=== PATIENT | male | born 1990 | race Caucasian/White ===

== ENCOUNTER 2017-07-30 13:27 | Emergency (ER) | payer MEDICAID ==
[2017-07-30] MEDS ORDERED: NS(*) 0.9% 1000 ML BAG 1,000 ML IV ONE (13:33)
[2017-07-30] MEDS ORDERED: fentaNYL CITR 100 MCG/2 ML AMP IVP ONE ×2 (13:35→14:30)
[2017-07-30] MEDS ORDERED: DIPHTH/TETANUS/ACEL. PERTUSSIS IM ONE (13:35)
[2017-07-30] MEDS ORDERED: ONDANSETRON 4 MG/2 ML VIAL IVP ONE (13:35)
[2017-07-30] MEDS ORDERED: methylPREDNIS SUCC 125 MG/2ML IVP ONE (13:40)
[2017-07-30] MEDS ORDERED: diphenhydrAMINE 50 MG/ML VIAL IVP ONE (13:40)
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
[2017-07-30 13:48] LABS: PLATELET COUNT, AUTOMATED 325 K/uL (150-450)
[2017-07-30] MEDS ORDERED: fentaNYL CITR 100 MCG/2 ML AMP ONE (13:53)
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
--- NOTE | 2017-07-30 13:57 | RADIOLOGY IMAGING REPORT ---
FACILITY: [facility] [place] PATIENT NAME: Aakash Mendoza : 1990 MR: [id number] V: [id number] EXAM DATE: ORDERING PHYSICIAN: JANY RAMOS TECHNOLOGIST: Location: [facility] Patient: Aakash Mendoza : 1990 Visit/Account:[id number] Date of Sevice: 07/30/2017 Study: PELVIS Indication: Trauma Comparison study: None Findings: AP supine view of the pelvis demonstrates the presence of a right ureteral stent. There is no evidence of abnormal calcification overlying the stent. The iliac crests, pubic rami, femoral heads, and femoral necks are unremarkable bilaterally. There i s no evidence of abnormality of the sacroiliac joints are hip joints. IMPRESSION: Unremarkable exam Report Dictated By: Justin Cooley at 07/30/2017 1:51 PM Report E-Signed By: Justin Cooley at 07/30/2017 1:52 PM WSN:[id number]
[2017-07-30 13:58] LABS: INR 1.04
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
--- NOTE | 2017-07-30 15:22 | RADIOLOGY IMAGING REPORT ---
FACILITY: [facility] - [place] PATIENT NAME: Aakash Mendoza : 1990 MR: [id number] V: [id number] EXAM DATE: ORDERING PHYSICIAN: JANY RAMOS TECHNOLOGIST: Location: [facility] - [place] Patient: Aakash Mendoza : 1990 Visit/Account:[id number] Date of Sevice: 07/30/2017 EXAMINATION: CT Cervical spine without intravenous contrast CT Thoracic spine without intravenous contrast CT Lumbar spine without intravenous contrast HISTORY: Neck pain. Back pain. Trauma. COMPARISON: None. TECHNIQUE: Axial CT of the cervical, thoracic, and lumbar spine with sagittal and coronal reformats. One of the following dose optimization techniques was utilized in the performance of this exam: Autom ated exposure control; adjustment of the mA and/or kV according to the patient's size; or use of an i terative reconstruction technique. Specific details can be referenced in the facility's radiology C T exam operational policy. FINDINGS: CERVICAL SPINE: Alignment: Normal. Cranio-cervical junction: Negative. Vertebral bodies: Negative. Posterior elements: Negative. Hardware: None. Disc Spaces: Negative. Soft tissues: Negative. Visualized upper chest: Negative. THORACIC SPINE: Alignment: Normal. Vertebral bodies: Negative. Posterior elements: Mild multilevel facet hypertrophy in the midthoracic spine. Hardware: None. Disc Spaces: Mild multilevel degenerative disc disease. Soft tissues: No soft tissue swelling. Visualized lungs / abdomen: Negative. LUMBAR SPINE: Alignment: 3 mm of anterior listhesis of L5 over S1 secondary to bilateral L5 pars defects. Vertebral bodies: Negative. Posterior elements: Bilateral L5 pars defects. Otherwise negative. Hardware: None. Disc Spaces: Mild disc height loss and disc bulge at L5-S1. Otherwise negative. Soft tissues: Negative. Visualized retroperitoneal / abdominal structures: Ureteral stent in the right kidney. IMPRESSION: 1. No acute fracture of the cervical, thoracic, or lumbar spine. 2. Mild multilevel degenerative disc disease and facet hypertrophy in the thoracic spine. 3. Bilateral L5 pars defects with 3 mm of anterior listhesis of L5 over S1. Mild disc height loss and disc bulge at L5-S1. Report Dictated By: Alan Hill MD at 07/30/2017 3:08 PM Report E-Signed By: Alan Hill MD at 07/30/2017 3:17 PM WSN:[id number]
--- NOTE | 2017-07-30 15:23 | RADIOLOGY IMAGING REPORT ---
FACILITY: [facility] PATIENT NAME: Aakash Mendoza : 1990 MR: [id number] V: [id number] EXAM DATE: ORDERING PHYSICIAN: JANY RAMOS TECHNOLOGIST: Location: Patient: Aakash Mendoza : 1990 Visit/Account:[id number] Date of Sevice: 07/30/2017 EXAMINATION: CT Cervical spine without intravenous contrast CT Thoracic spine without intravenous contrast CT Lumbar spine without intravenous contrast HISTORY: Neck pain. Back pain. Trauma. COMPARISON: None. TECHNIQUE: Axial CT of the cervical, thoracic, and lumbar spine with sagittal and coronal reformats. One of the following dose optimization techniques was utilized in the performance of this exam: Autom ated exposure control; adjustment of the mA and/or kV according to the patient's size; or use of an i terative reconstruction technique. Specific details can be referenced in the facility's radiology C T exam operational policy. FINDINGS: CERVICAL SPINE: Alignment: Normal. Cranio-cervical junction: Negative. Vertebral bodies: Negative. Posterior elements: Negative. Hardware: None. Disc Spaces: Negative. Soft tissues: Negative. Visualized upper chest: Negative. THORACIC SPINE: Alignment: Normal. Vertebral bodies: Negative. Posterior elements: Mild multilevel facet hypertrophy in the midthoracic spine. Hardware: None. Disc Spaces: Mild multilevel degenerative disc disease. Soft tissues: No soft tissue swelling. Visualized lungs / abdomen: Negative. LUMBAR SPINE: Alignment: 3 mm of anterior listhesis of L5 over S1 secondary to bilateral L5 pars defects. Vertebral bodies: Negative. Posterior elements: Bilateral L5 pars defects. Otherwise negative. Hardware: None. Disc Spaces: Mild disc height loss and disc bulge at L5-S1. Otherwise negative. Soft tissues: Negative. Visualized retroperitoneal / abdominal structures: Ureteral stent in the right kidney. IMPRESSION: 1. No acute fracture of the cervical, thoracic, or lumbar spine. 2. Mild multilevel degenerative disc disease and facet hypertrophy in the thoracic spine. 3. Bilateral L5 pars defects with 3 mm of anterior listhesis of L5 over S1. Mild disc height loss and disc bulge at L5-S1. Report Dictated By: Alan Hill MD at 07/30/2017 3:08 PM Report E-Signed By: Alan Hill MD at 07/30/2017 3:17 PM WSN:[id number]
[2017-07-30] MEDS ORDERED: HYDROmorphone(ER ONLY) 1 MG/ML IVP ONE (15:25)
--- NOTE | 2017-07-30 15:26 | RADIOLOGY IMAGING REPORT ---
FACILITY: [facility] PATIENT NAME: Aakash Mendoza : 1990 MR: [id number] V: [id number] EXAM DATE: ORDERING PHYSICIAN: JANY RAMOS TECHNOLOGIST: Location: [facility] [place] Patient: Aakash Mendoza : 1990 Visit/Account:[id number] Date of Sevice: 07/30/2017 EXAMINATION: CT Face without intravenous contrast HISTORY: Trauma. COMPARISON: None. TECHNIQUE: Axial images were obtained from the superior aspect of the orbits through the inferior as pect of mandible. Coronal and sagittal reformatted images were obtained from the axial source data. N o IV contrast was administered. One of the following dose optimization techniques was utilized in the performance of this exam: Autom ated exposure control; adjustment of the mA and/or kV according to the patient's size; or use of an i terative reconstruction technique. Specific details can be referenced in the facility's radiology C T exam operational policy. FINDINGS: Soft Tissues: Negative. Mandible / TMJ: Negative. Maxillae / pterygoid plates: Negative. Zygoma / zygomatic arches: Negative. Orbits: Negative. Nasal bones / nasal septum: Negative. Frontal bones: Negative. Sinuses: Small retention cyst or polyp in the floor of the right maxillary sinus. Otherwise negative. Visualized brain: Negative. IMPRESSION: No acute facial fracture. Report Dictated By: Alan Hill MD at 07/30/2017 3:18 PM Report E-Signed By: Alan Hill MD at 07/30/2017 3:21 PM WSN:[id number]
--- NOTE | 2017-07-30 15:33 | RADIOLOGY IMAGING REPORT ---
FACILITY: [facility] - [place] PATIENT NAME: Aakash Mendoza : 1990 MR: [id number] V: [id number] EXAM DATE: ORDERING PHYSICIAN: JANY RAMOS TECHNOLOGIST: Location: [facility] - [place] Patient: Aakash Mendoza : 1990 Visit/Account:[id number] Date of Sevice: 07/30/2017 SHOULDER MIN 2 VIEWS LEFT Indication: Trauma. Comparison: Unavailable Findings: 2 views of the left shoulder. No evidence of acute fracture, dislocation, or radiopaque foreign body. Normal mineralization, joint spaces, and alignment. IMPRESSION: No acute osseous abnormality of the left shoulder. Report Dictated By: Aaln Hill MD at 07/30/2017 3:27 PM Report E-Signed By: Alan Hill MD at 07/30/2017 3:29 PM WSN:[id number]
[2017-07-30 15:50] VITALS: BP 110/81
== END 2017-07-30 15:58 | disposition home or self-care (01) ==
LOC: ER 13:28
DX: S20.212A Contusion of left front wall of thorax, initial encounter (principal); S00.03XA Contusion of scalp, initial encounter; V86.59XA Driver of other special all-terrain or other off-road motor vehicle injured in nontraffic accident, initial encounter
CPT/HCPCS: 70450; 70486; 71045; 71250; 72125; 72128; 72131; 72170; 73030; 74176; 80320; 83690; 85025; 85610; 85730; 86850; 86900; 86901; 93005; 96361; 96374; 96375; 96376; 99284; J1170; J2405; J3010; J7030; 82040; 82247; 82310; 82374; 82435; 82565; 82947; 84075; 84132; 84155; 84295; 84450; 84460; 84520

== ENCOUNTER 2017-08-09 21:35 | Emergency (ER) | payer MEDICAID ==
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
[2017-08-09] MEDS ORDERED: NS(*) 0.9% 1000 ML BAG 1,000 ML IV ONE (21:46)
[2017-08-09] MEDS ORDERED: ONDANSETRON 4 MG/2 ML VIAL IVP ONE (21:50)
[2017-08-09] MEDS ORDERED: fentaNYL CITR 100 MCG/2 ML AMP IVP ONE ×2 (21:50→22:30)
[2017-08-09] MEDS ORDERED: DIPHTH/TETANUS/ACEL. PERTUSSIS IM ONE (21:50)
[2017-08-09 21:59] LABS: PLATELET COUNT, AUTOMATED 244 K/uL (150-450)
[2017-08-09] MEDS ORDERED: LORazepam 2 MG/ML VIAL IVP ONE (22:00)
[2017-08-09] MEDS ORDERED: LORazepam 2 MG/ML VIAL ONE (22:01)
--- NOTE | 2017-08-09 22:02 | EKG ---
FACILITY: [facility] - [place] PATIENT NAME: AJIT ARTEAGA : [id number] MR: [id number] V: [id number] EXAM DATE: ORDERING PHYSICIAN: CORRINE OWEN TECHNOLOGIST: ABILIO Dao Reason : ER TRAUMA Blood Pressure : / mmHG Vent. Rate : 092 BPM Atrial Rate : 092 BPM P-R Int : 138 ms QRS Dur : 090 ms QT Int : 356 ms P-R-T Axes : 048 060 055 degrees QTc Int : 440 ms Normal sinus rhythm Normal ECG When compared with ECG of 30-JUL-2017 13:35, No significant change was found Confirmed by JESSICA MORAN ([id number]) on 08/10/2017 4:13:44 AM Referred By: Confirmed By:JESSICA MORAN
[2017-08-09 22:11] LABS: INR 1.06
--- NOTE | 2017-08-09 23:05 | RADIOLOGY IMAGING REPORT ---
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 No acute deformity or sign ificant change is identified in the lumbar spine. Report Dictated By: Mango Barbosa MD at 08/09/2017 11:14 PM Report E-Signed By: Mango Barbosa MD at 08/09/2017 11:[address] of the abdomen and pelvis without contrast: Indication: Injury. Technique: Helical CT was performed through the abdomen and pelvis without contrast. Multiplanar rec onstructions are reviewed. There is streak artifact related to the low position of the patient's arms . One of the following dose optimization techniques was utilized in the performance of this exam: Autom ated exposure control; adjustment of the mA and/or kV according to the patient's size; or use of an i terative reconstruction technique. Specific details can be referenced in the facility's radiology C T exam operational policy. Comparison: 07/30/2017 Lower lung smith: No focal parenchymal or pleural abnormality is identified. Liver: Normal in size, shape, and density. Gallbladder/biliary tree: The gallbladder is normal in size and homogeneous in density. The bile duct s are normal in caliber. Pancreas: Normal in size, shape, and density. Spleen: Normal in size, shape, and density. Adrenal glands: Within normal limits. Kidneys/urinary bladder: There are no signs of acute renal injury. The right ureteral stent is no jeanette chelle present. There is no dilatation of the right ureter or intrarenal collecting structures. Tiny non obstructing calculi are present at the lower pole of the right kidney. Tiny hyperdense cysts are pres ent in both kidneys, without significant change. The bladder appears homogeneous and unremarkable. Intestinal structures: Unremarkable, as visualized. Pelvis: Unremarkable. Aorta and vascular structures: Within normal limits. Ascites or fluid collections: None seen. Skeletal structures: Intact and unremarkable. Impression: No acute deformity. Report Dictated By: Mango Barbosa MD at 08/09/2017 10:53 PM Report E-Signed By: Mango Barbosa MD at 08/09/2017 11:01 PM WSN:[id number]
--- NOTE | 2017-08-09 23:10 | RADIOLOGY IMAGING REPORT ---
FACILITY: [facility] PATIENT NAME: Aakash Mendoza : 1990 MR: [id number] V: [id number] EXAM DATE: ORDERING PHYSICIAN: CORRINE OWEN TECHNOLOGIST: [place] [facility] [place]akash Mendoza : 1990 Visit/Account:[id number] Date of Sevice: 08/09/2017 CT of the chest: Indication: Injury. Technique: Helical CT was performed through the chest without contrast. One of the following dose optimization techniques was utilized in the performance of this exam: Autom ated exposure control; adjustment of the mA and/or kV according to the patient's size; or use of an i terative reconstruction technique. Specific details can be referenced in the facility's radiology C T exam operational policy. Comparison: 07/30/2017 Lung smith: Well-expanded and clear. No focal or diffuse parenchymal opacities are identified. Pleural spaces: There is no evidence of effusion, focal thickening, or pneumothorax. Mediastinum: A few tiny lymph nodes are present. There is no evidence of hematoma or other soft tissu e abnormality. Heart and vascular structures: Unremarkable and unchanged. Skeletal structures: Intact and unremarkable. Upper abdomen: Unremarkable. IMPRESSION: No acute deformity or significant change. Report Dictated By: Mango Barbosa MD at 08/09/2017 11:01 PM Report E-Signed By: Mango Barbosa MD at 08/09/2017 11:07 PM WSN:[id number]
--- NOTE | 2017-08-09 23:14 | RADIOLOGY IMAGING REPORT ---
FACILITY: [facility] PATIENT NAME: Aakash Mendoza : 1990 MR: [id number] V: [id number] EXAM DATE: ORDERING PHYSICIAN: CORRINE OWEN TECHNOLOGIST: [place] [facility] [place] Patient: Aakash Mendoza : 1990 Visit/Account:[id number] Date of Sevice: 08/09/[address]: Indication: Injury. Technique: Contiguous axial sections were obtained from the base to the vertex without contrast enhan cement. One of the following dose optimization techniques was utilized in the performance of this exam: Autom ated exposure control; adjustment of the mA and/or kV according to the patient's size; or use of an i terative reconstruction technique. Specific details can be referenced in the facility's radiology CT exam operational policy. Comparison: 07/30/2017 Findings: There is no evidence of intra-axial or extra-axial hemorrhage. No focal areas of decreased or increased attenuation are identified. There is no evidence of mass, edema, or shift of the midline structures. The size, shape, and configuration of the ventricular system are normal. The skeletal st ructures are intact and unremarkable. There is no evidence of fracture or other acute deformity. Ther e is a tiny retention cyst in the right maxillary sinus. The visualized paranasal sinuses and mastoid air cells are otherwise clear. Impression: No acute deformity or significant change. Report Dictated By: Mango Barbosa MD at 08/09/2017 11:07 PM Report E-Signed By: Mango Barbosa MD at 08/09/2017 11:11 PM WSN:[id number]
--- NOTE | 2017-08-09 23:26 | RADIOLOGY IMAGING REPORT ---
FACILITY: [facility] PATIENT NAME: Aakash Mendoza : 1990 MR: [id number] V: [id number] EXAM DATE: ORDERING PHYSICIAN: CORRINE OWEN TECHNOLOGIST: Location: [facility] [place] Patient: Aakash Mendoza : 1990 Visit/Account:[id number] Date of Sevice: 08/09/2017 ADDENDUM #1 Addendum: One of the following dose optimization techniques was utilized in the performance of this e xam: Automated exposure control; adjustment of the mA and/or kV according to the patient's size; or u se of an iterative reconstruction technique. Specific details can be referenced in the facility's r adiology CT exam operational policy. Report Dictated By: Mango Barbosa MD at 08/13/2017 2:31 AM Report E-Signed By: Mango Barbosa MD at 08/13/2017 2:[address] of the cervical spine without contrast: Indication: Injury. Technique: Helical CT was performed from the base of the skull through the upper thoracic spine witho ut contrast. Axial, coronal, and sagittal reconstructions are reviewed. Comparison: 07/30/2017 Findings: There is no evidence of fracture, compression, subluxation, or other acute deformity. There is uniform mineralization. The skeletal structures are otherwise unremarkable. No paraspinal soft ti ssue abnormalities are identified. IMPRESSION: No evidence of fracture or acute deformity. No significant change. Report Dictated By: Mango Barbosa MD at 08/09/2017 11:20 PM Report E-Signed By: Mango Barbosa MD at 08/09/2017 11:22 PM WSN:[id number]
--- NOTE | 2017-08-09 23:27 | RADIOLOGY IMAGING REPORT ---
FACILITY: [facility] [place] PATIENT NAME: Aakash Mendoza : 1990 MR: [id number] V: [id number] EXAM DATE: ORDERING PHYSICIAN: CORRINE OWEN TECHNOLOGIST: Location: [facility] [place] Patient: Aakash Mendoza : 1990 Visit/Account:[id number] Date of Sevice: 08/09/2017 PORTABLE CHEST: Indication: Injury. Technique: A single frontal film was obtained. Comparison: 07/30/2017 Skeletal and soft tissue structures: Intact and unremarkable. Heart and mediastinum: Within normal limits. Lung smith: Well-expanded and clear. Pleural spaces: Unremarkable. Impression: No acute deformity or significant change. Report Dictated By: Mango Barbosa MD at 08/09/2017 11:23 PM Report E-Signed By: Mango Barbosa MD at 08/09/2017 11:24 PM WSN:[id number]
[2017-08-09] MEDS ORDERED: RIVA10TA (23:33)
[2017-08-09] MEDS ORDERED: TAMS0.4C25 PO (23:33)
[2017-08-09] MEDS ORDERED: IBUP600T22 PO (23:40)
== END 2017-08-09 23:50 | disposition home or self-care (01) ==
LOC: ER 21:51
DX: S20.311A Abrasion of right front wall of thorax, initial encounter (principal); M79.604 Pain in right leg; F41.9 Anxiety disorder, unspecified; M43.06 Spondylolysis, lumbar region; V48.7XXA Person on outside of car injured in noncollision transport accident in traffic accident, initial encounter
CPT/HCPCS: 70450; 71045; 71250; 72125; 74176; 80305; 81001; 82150; 83605; 83690; 85025; 85610; 85730; 93005; 96361; 96374; 96375; 96376; 99284; G0480; J2060; J2405; J3010; J7030; L0172; 80320; 82040; 82247; 82310; 82374; 82435; 82565; 82947; 84075; 84132; 84155; 84295; 84450; 84460; 84520

== ENCOUNTER 2017-10-04 19:33 | Emergency (ER) | payer MEDICAID ==
[~2017-10-04 19:33] MED LIST: IBUP600T22 PO; RIVA10TA; TAMS0.4C25 PO
--- NOTE | 2017-10-04 19:48 | ER Report ---
History and Physical Time Seen By MD: 19:47 Hx. of Stated Complaint: Pt has hx of kidney stones and is in severe pain with his right side front and back. HPI/ROS CHIEF COMPLAINT: Right lower quadrant and groin pain HISTORY OF PRESENT ILLNESS: This is a 27-year-old male who presents to the emergency department for right flank, right lower quadrant and groin pain. Patient states that he was treated for a kidney stone recently had a dental placed then the stent was removed about a month ago. Patient states that he will have intermittent twinges on the right side. Then yesterday evening he began to have some achiness in the right side, then early in the morning he began to have increased right-sided pain patient states he was trying to deal with this at home and the pain became so severe that he came in for further evaluation. Patient states that he also has a in the right inguinal area into the right testicle. Patient also states that he's had dark blackish stools for the last 4-5 days. He's had nausea, no vomiting. Patient also states that he's had blood in his urine. No chest pain or shortness of breath. No rashes. No headaches. REVIEW OF SYSTEMS: Constitutional: No fever, no chills. Eyes: No discharge. ENT: No sore throat. Cardiovascular: No chest pain, no palpitations. Respiratory: No cough, no shortness of breath. Gastrointestinal: As above. Genitourinary: As above. Musculoskeletal: No back pain. Skin: No rashes. Neurological: No headache. Allergies: Coded Allergies: diphenhydramine (Verified Allergy, Intermediate, 10/04/17) Uncoded Allergies: CONTRAST (Allergy, Severe, 07/30/17) BREATHING PROBLEMS Home Meds Active Scripts Doxycycline Hyclate (DOXYCYCLINE HYCLATE) 100 Mg Tablet, 100 MG PO BID for 10 Days, #18 TAB 0 Refills Prov:DARIAN DYER GEOSPATIAL EXTRACTOR ANALYSIS-BC 10/04/17 Discontinued Reported Medications Tamsulosin Hcl (FLOMAX) 0.4 Mg Cap.er.24h, 0.4 MG PO, CAP 08/09/17 Rivaroxaban 10 MG (Xarelto 10 MG) 10 Mg Tablet 08/09/17 Discontinued Scripts Ibuprofen (IBUPROFEN) 600 Mg Tablet, 1 TAB PO Q6H, #30 TAB Prov:LEXIECORRINE 08/09/17 Past Medical/Surgical History She has a past medical and surgical history of PE, gallstones with a stent, urinary tract infections, chronic back pain, kidney stones, urinary stent. Reviewed Nurses Notes: Yes Hx Substance Use Disorder: No Hx Alcohol Use: No Constitutional Vital Sign - Last 24 Hours 10/04/17 10/04/17 10/04/17 19:40 19:41 20:12 Temp 99.6 Pulse 81 Resp 14 B/P (MAP) 144/99 (114) 144/99 141/93 (109) Pulse Ox 95 O2 Delivery Room Air Physical Exam General Appearance: The patient is alert, has no immediate need for airway protection and no signs of toxicity, appears anxious. Eyes: Pupils equal and round no pallor or injection. ENT, Mouth: Mucous membranes are moist. Respiratory: There are no retractions, lungs are clear to auscultation. Cardiovascular: Regular rate and rhythm, no murmurs, clicks or rubs. Gastrointestinal: Abdomen is soft, tenderness to the right upper and lower quadrants. no masses, bowel sounds normal. Genitourinary: Positive cremasteric reflex bilaterally. Normal feeling testes bilaterally. Nothing noted in the left inguinal canal. I did feel something in right inguinal canal, but nothing extending into the scrotum. Neurological: Alert and oriented 4. Moving all extremities. Following all commands. No focal neuro deficits. Skin: Warm and dry, no rashes. Musculoskeletal: Neck is supple non tender. Extremities are nontender, nonswollen and have full range of motion. DIFFERENTIAL DIAGNOSIS: After history and physical exam differential diagnosis was considered for abdominal pain including but not limited to appendicitis, cholecystitis, testicular torsion, nephrolithiasis, gastritis and urinary tract infection. Medical Decision Making Data Points Result Diagram: 10/04/17 1950 10/04/171949 Laboratory Hematology Test 10/04/17 19:38 10/04/17 19:50 Urine Color Yellow Urine Clarity Cloudy Urine pH 8.0 pH (4.8-9.5) Urine Specific Conway 1.014 Urine Protein Negative mg/dL (NEGATIVE) Urine Glucose (UA) Negative mg/dL (NEGATIVE) Urine Ketones Negative mg/dL (NEGATIVE) Urine Blood Moderate (NEGATIVE) Urine Nitrite Positive (NEGATIVE) Urine Bilirubin Negative (NEGATIVE) Urine Urobilinogen Negative mg/dL (0.2-1.9) Urine Leukocyte Esterase Large (NEGATIVE) Urine RBC 29 /HPF (0-2/HPF) Urine WBC 22 /HPF (0-5/HPF) Urine Squamous Epithelial Cells Many /LPF (</=FEW) Urine Amorphous Crystals Few /HPF Urine Bacteria Moderate /HPF (NONE-FEW) Urine Mucus None /HPF (NONE-FEW) Red Blood Count 4.83 M/uL (4.00-5.60) Mean Corpuscular Volume 90.3 fL (80.0-96.0) Mean Corpuscular Hemoglobin 31.7 pg (26.0-33.0) Mean Corpuscular Hemoglobin Concent 35.0 g/dL (32.0-36.0) Red Cell Distribution Width 12.9 % (11.5-14.5) Mean Platelet Volume 7.7 fL (7.2-11.1) Neutrophils (%) (Auto) 50.9 % (39.4-72.5) Lymphocytes (%) (Auto) 39.7 % (17.6-49.6) Monocytes (%) (Auto) 8.3 % (4.1-12.4) Eosinophils (%) (Auto) 0.7 % (0.4-6.7) Basophils (%) (Auto) 0.4 % (0.3-1.4) Nucleated RBC Relative Count (auto) 0.1 /100WBC Neutrophils # (Auto) 4.0 K/uL (2.0-7.4) Lymphocytes # (Auto) 3.1 K/uL (1.3-3.6) Monocytes # (Auto) 0.7 K/uL (0.3-1.0) Eosinophils # (Auto) 0.1 K/uL (0.0-0.5) Basophils # (Auto) 0.0 K/uL (0.0-0.1) Nucleated RBC Absolute Count (auto) 0.00 K/uL Sodium Level 143 mmol/L (137-145) Potassium Level 4.0 mmol/L (3.5-5.0) Chloride Level 103 mmol/L (98-107) Carbon Dioxide Level 25 mmol/L (22-30) Blood Urea Nitrogen 13 mg/dl (9-21) Creatinine 1.30 mg/dl (0.66-1.25) Glomerular Filtration Rate Calc > 60.0 Random Glucose 103 mg/dl (75-110) Calcium Level 9.7 mg/dl (8.4-10.2) Total Bilirubin 0.5 mg/dl (0.2-1.3) Aspartate Amino Transf (AST/SGOT) 37 U/L (0-35) Alanine Aminotransferase (ALT/SGPT) 45 U/L (0-56) Alkaline Phosphatase 92 U/L (0-126) Total Protein 7.6 gm/dl (6.3-8.2) Albumin 4.2 g/dl (3.5-5.0) Chemistry Test 10/04/17 19:38 10/04/17 19:50 Urine Color Yellow Urine Clarity Cloudy Urine pH 8.0 pH (4.8-9.5) Urine Specific [place] 1.014 Urine Protein Negative mg/dL (NEGATIVE) Urine Glucose (UA) Negative mg/dL (NEGATIVE) Urine Ketones Negative mg/dL (NEGATIVE) Urine Blood Moderate (NEGATIVE) Urine Nitrite Positive (NEGATIVE) Urine Bilirubin Negative (NEGATIVE) Urine Urobilinogen Negative mg/dL (0.2-1.9) Urine Leukocyte Esterase Large (NEGATIVE) Urine RBC 29 /HPF (0-2/HPF) Urine WBC 22 /HPF (0-5/HPF) Urine Squamous Epithelial Cells Many /LPF (</=FEW) Urine Amorphous Crystals Few /HPF Urine Bacteria Moderate /HPF (NONE-FEW) Urine Mucus None /HPF (NONE-FEW) White Blood Count 7.9 k/uL (4.5-11.0) Red Blood Count 4.83 M/uL (4.00-5.60) Hemoglobin 15.3 g/dL (14.0-18.0) Hematocrit 43.6 % (42.0-52.0) Mean Corpuscular Volume 90.3 fL (80.0-96.0) Mean Corpuscular Hemoglobin 31.7 pg (26.0-33.0) Mean Corpuscular Hemoglobin Concent 35.0 g/dL (32.0-36.0) Red Cell Distribution Width 12.9 % (11.5-14.5) Platelet Count 279 K/uL (150-450) Mean Platelet Volume 7.7 fL (7.2-11.1) Neutrophils (%) (Auto) 50.9 % (39.4-72.5) Lymphocytes (%) (Auto) 39.7 % (17.6-49.6) Monocytes (%) (Auto) 8.3 % (4.1-12.4) Eosinophils (%) (Auto) 0.7 % (0.4-6.7) Basophils (%) (Auto) 0.4 % (0.3-1.4) Nucleated RBC Relative Count (auto) 0.1 /100WBC Neutrophils # (Auto) 4.0 K/uL (2.0-7.4) Lymphocytes # (Auto) 3.1 K/uL (1.3-3.6) Monocytes # (Auto) 0.7 K/uL (0.3-1.0) Eosinophils # (Auto) 0.1 K/uL (0.0-0.5) Basophils # (Auto) 0.0 K/uL (0.0-0.1) Nucleated RBC Absolute Count (auto) 0.00 K/uL Glomerular Filtration Rate Calc > 60.0 Calcium Level 9.7 mg/dl (8.4-10.2) Total Bilirubin 0.5 mg/dl (0.2-1.3) Aspartate Amino Transf (AST/SGOT) 37 U/L (0-35) Alanine Aminotransferase (ALT/SGPT) 45 U/L (0-56) Alkaline Phosphatase 92 U/L (0-126) Total Protein 7.6 gm/dl (6.3-8.2) Albumin 4.2 g/dl (3.5-5.0) Urinalysis Test 10/04/17 19:38 Urine Color Yellow Urine Clarity Cloudy Urine pH 8.0 pH (4.8-9.5) Urine Specific Conway 1.014 Urine Protein Negative mg/dL (NEGATIVE) Urine Glucose (UA) Negative mg/dL (NEGATIVE) Urine Ketones Negative mg/dL (NEGATIVE) Urine Blood Moderate (NEGATIVE) Urine Nitrite Positive (NEGATIVE) Urine Bilirubin Negative (NEGATIVE) Urine Urobilinogen Negative mg/dL (0.2-1.9) Urine Leukocyte Esterase Large (NEGATIVE) Urine RBC 29 /HPF (0-2/HPF) Urine WBC 22 /HPF (0-5/HPF) Urine Squamous Epithelial Cells Many /LPF (</=FEW) Urine Amorphous Crystals Few /HPF Urine Bacteria Moderate /HPF (NONE-FEW) Urine Mucus None /HPF (NONE-FEW) EKG/Imaging Imaging CT of the abdomen and pelvis without contrast: Indication: Abdominal pain. Evaluate for hernia or kidney stone. Technique: Helical CT was performed through the abdomen and pelvis without contrast. Multiplanar reconstructions are reviewed. One of the following dose optimization techniques was utilized in the performance of this exam: Automated exposure control; adjustment of the mA and/ or kV according to the patient's size; or use of an iterative reconstruction technique. Specific details can be referenced in the facility's radiology CT exam operational policy. Comparison: 08/09/2017 Lower lung smith: A tiny granuloma in the right lower lobe appears unchanged. No acute parenchymal or pleural process is identified. Liver: Normal in size, shape, and density. Gallbladder/biliary tree: The gallbladder appears contracted, but otherwise unremarkable. The bile ducts are normal in caliber. Pancreas: Normal in size, shape, and density. Spleen: Normal in size, shape, and density. Adrenal glands: Within normal limits. Kidneys/urinary bladder: Tiny nonobstructing calculi at the lower pole of the right kidney appear unchanged. There also appears to be a tiny nonobstructing calculus in the left kidney, without significant change. There are no signs of ureteral calculus or obstruction on either side. Tiny hyperdense cysts are present in both kidneys, without significant interval change. The kidneys are otherwise unremarkable. The urinary bladder appears homogeneous and unremarkable. Intestinal structures: Unremarkable, as visualized. There are no signs of obstruction or focal inflammatory changes. The appendix appears unremarkable and unchanged. Pelvis: Unremarkable and unchanged. There are no signs of inguinal hernia. Aorta and vascular structures: Within normal limits. Ascites or fluid collections: None seen. Skeletal structures: There are mild degenerative changes in the spine. No acute skeletal deformity is identified. Impression: Tiny nonobstructing calculi in both kidneys appear unchanged. There are no signs of ureteral calculus or obstruction. There are no signs of hernia. Report Dictated By: Mango Barbosa MD at 10/04/2017 8:38 PM Report E-Signed By: Mango Barbosa MD at 10/04/2017 8:51 PM WSN:[id number] ED Course/Re-evaluation Clinical Indication for ER IV: Hydration, IV Access ED Course The patient was admitted to room. A history and physical were obtained. Differential diagnoses were considered. An IV was started. A CBC, CMP were obtained. Lab studies unremarkable. UA showing Moderate blood, positive nitrites , large leukocyte esterase, 29 urine wbc's, moderate urine bacteriaCreatinine 1.30, GFR greater than 60. 4 mg IV Zofran, 4 mg IV morphine. 1 g IV of Ofirmev. Patient states that the pain is getting worse and continues to request pain medications. A CT of the abdomen and pelvis showing one small nonobstructing kidney stone, no hydronephrosis, no hernias. 30 mg IV ketorolac, 1 g of Rocephin IV. Right testicular ultrasound showing epididymitis. Patient did refuse the ketorolac. I did send a prescription for doxycycline to the pharmacy on the patient's medication list maciej which is [facility] Patient was also given 2 doxycycline tablets to go home with. I did send out a urine GC chlamydia. The patient did come out walking normally to the nurse's station requesting to talk to me, I did talk to the patient he is once again requesting narcotic pain medications for the next couple of days, "at least to get him through this". I did tell him that he has received a large number of narcotic pain medications within the last couple months. I also told him that I can give him a muscle relaxer and some nausea medicine to go home with, the patient declined he said he has those at home. I did tell the patient that my concern is his safety and he does not have any indications for narcotic pain medications at this time, no hernia, no obstructing kidney stones, no testicular torsion. 10/04/2017 8:19:49 pm I did check the [place] PDMP and the patient was noted to have a total of 55 oxycodone within the last 2 months. A colleague also check the [place] PDMP and he was noted to have multiple addresses, and multiple oxycodone prescriptions, from multiple providers and multiple pharmacies. Decision to Disposition Date: Oct 04, 2017 Decision to Disposition Time: 21:43 Depart Departure Latest Vital Signs Vital Signs Date Time Temp Pulse Resp B/P (MAP) Pulse Ox O2 Delivery O2 Flow Rate FiO2 10/04/17 20:12 141/93 (109) 10/04/17 19:41 99.6 81 14 95 Room Air Impression: Primary Impression: Renal calculi Additional Impressions: Epididymitis Urinary tract infection Condition: Improved Disposition: HOME OR SELF-CARE Referrals: UROLOGY New Scripts Doxycycline Hyclate (DOXYCYCLINE HYCLATE) 100 Mg Tablet 100 MG PO BID for 10 Days, #18 TAB 0 Refills Prov: DARIAN DYER 10/04/17 Patient Instructions: Epididymitis (ED), Kidney Stones (ED), Urinary Tract Infection in Men (ED) Additional Instructions: Drink plenty of water. Take ibuprofen and/or Tylenol as needed for pain. Follow-up with urology either in [facility] or in [facility], and 2-4 days. Establish with a primary care provider. Return to the emergency department for any other concerns or worsening symptoms. Take the antibiotics as prescribed. Problem Qualifiers Additional Impressions: Urinary tract infection Urinary tract infection type: acute cystitis Hematuria presence: with hematuria Qualified Codes: N30.01 - Acute cystitis with hematuria DARIAN DYER-BC Oct 04, 2017 19:47
[2017-10-04] MEDS ORDERED: NS(*) 0.9% 1000 ML BAG 1,000 ML IV ONE (20:00)
[2017-10-04] MEDS ORDERED: MORPHINE 4 MG/ML SDV IVP ONE (20:00)
[2017-10-04 20:10] LABS: PLATELET COUNT, AUTOMATED 279 K/uL (150-450)
[2017-10-04 20:12] VITALS: BP 141/93
[2017-10-04] MEDS ORDERED: ACETAMINOPHEN(*)1000 MG/100 ML 100 ML IVPB ONE (20:30)
--- NOTE | 2017-10-04 20:55 | RADIOLOGY IMAGING REPORT ---
FACILITY: [facility] PATIENT NAME: Aakash Mendoza : 1990 MR: [id number] V: [id number] EXAM DATE: [id number] ORDERING PHYSICIAN: DARIAN DYER TECHNOLOGIST: Location: [facility] - [place] Patient: Aakash Mendoza : 1990 Visit/Account:[id number] Date of Sevice: 10/04/2017 CT of the abdomen and pelvis without contrast: Indication: Abdominal pain. Evaluate for hernia or kidney stone. Technique: Helical CT was performed through the abdomen and pelvis without contrast. Multiplanar rec onstructions are reviewed. One of the following dose optimization techniques was utilized in the performance of this exam: Autom ated exposure control; adjustment of the mA and/or kV according to the patient's size; or use of an i terative reconstruction technique. Specific details can be referenced in the facility's radiology C T exam operational policy. Comparison: 08/09/2017 Lower lung smith: A tiny granuloma in the right lower lobe appears unchanged. No acute parenchymal o r pleural process is identified. Liver: Normal in size, shape, and density. Gallbladder/biliary tree: The gallbladder appears contracted, but otherwise unremarkable. The bile du cts are normal in caliber. Pancreas: Normal in size, shape, and density. Spleen: Normal in size, shape, and density. Adrenal glands: Within normal limits. Kidneys/urinary bladder: Tiny nonobstructing calculi at the lower pole of the right kidney appear unc hanged. There also appears to be a tiny nonobstructing calculus in the left kidney, without significa nt change. There are no signs of ureteral calculus or obstruction on either side. Tiny hyperdense cysts are present in both kidneys, without significant interval change. The kidneys a re otherwise unremarkable. The urinary bladder appears homogeneous and unremarkable. Intestinal structures: Unremarkable, as visualized. There are no signs of obstruction or focal inflam matory changes. The appendix appears unremarkable and unchanged. Pelvis: Unremarkable and unchanged. There are no signs of inguinal hernia. Aorta and vascular structures: Within normal limits. Ascites or fluid collections: None seen. Skeletal structures: There are mild degenerative changes in the spine. No acute skeletal deformity is identified. Impression: Tiny nonobstructing calculi in both kidneys appear unchanged. There are no signs of urete ral calculus or obstruction. There are no signs of hernia. Report Dictated By: Mango Barbosa MD at 10/04/2017 8:38 PM Report E-Signed By: Mango Barbosa MD at 10/04/2017 8:51 PM WSN:[id number]
[2017-10-04] MEDS: KETOROLAC 30 MG/ML VIAL IVP ONE ×2 (21:00→21:22)
[2017-10-04] MEDS ORDERED: cefTRIAXone 1 GM VIAL IVP ONE (21:00)
--- NOTE | 2017-10-04 21:24 | RADIOLOGY IMAGING REPORT ---
FACILITY: [facility] PATIENT NAME: Aakash Mendoza : 1990 MR: [id number] V: [id number] EXAM DATE: [id number] ORDERING PHYSICIAN: DARIAN DYER TECHNOLOGIST: Location: [facility] - [place] Patient: Aakash Mendoza : 1990 Visit/Account:[id number] Date of Sevice: 10/04/2017 Ultrasound of the scrotum and testicles: Indication: Pain. Technique: Duplex Doppler and color Doppler imaging were performed. Comparison: None. Testicles: The right testicle measures 3.6 x 2.7 x 2.2 cm. The left testicle measures 3.6 x 2.3 x 2.3 cm. There are no signs of testicular nodule, cyst, or calcification. Doppler images demonstrate norm al flow signals on both sides. There are no signs of testicular torsion. Epididymal structures: Symmetrical in size and echogenicity. Subjectively, there may be increased vas cularity, suggestive of epididymitis. Varicocele: There may be a small varicocele on the left. Hydrocele: None seen. Impression: Subjectively, there may be increased vascularity in the epididymal structures, suggestive of epididymitis. Additional clinical correlation is advised. There are no signs of focal testicular abnormality or testicular torsion. Report Dictated By: Mango Barbosa MD at 10/04/2017 9:15 PM Report E-Signed By: Mango Barbosa MD at 10/04/2017 9:21 PM WSN:[id number]
[2017-10-04] MEDS ORDERED: DOXYCYCLINE HYCL 100 MG TAB TH PO ONE (21:40)
[2017-10-04] MEDS ORDERED: DOXY-179 PO (21:40)
== END 2017-10-04 21:53 | disposition home or self-care (01) ==
LOC: ER 19:50
DX: N20.0 Calculus of kidney (principal); N30.01 Acute cystitis with hematuria; N45.1 Epididymitis
CPT/HCPCS: 74176; 76870; 81001; 85025; 87088; 87491; 87591; 96365; 96375; 99284; J0131; J0696; J2270; J7030; 82040; 82247; 82310; 82374; 82435; 82565; 82947; 84075; 84132; 84155; 84295; 84450; 84460; 84520; J1885

== ENCOUNTER 2017-10-19 11:00 | Emergency (ER) | payer MEDICAID ==
[~2017-10-19 11:00] MED LIST changes: +DOXY-179 PO
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
[2017-10-19] MEDS ORDERED: RIVA10TA (11:18)
[2017-10-19] MEDS ORDERED: KETOROLAC 30 MG/ML VIAL IVP ONE (11:25)
[2017-10-19 11:41] LABS: PLATELET COUNT, AUTOMATED 285 K/uL (150-450)
[2017-10-19] MEDS ORDERED: ACETAMINOPHEN 500 MG TAB PO ONE (12:05)
[2017-10-19 12:21] VITALS: BP 128/84
--- NOTE | 2017-10-19 12:31 | RADIOLOGY IMAGING REPORT ---
FACILITY[place] [facility] [place]IENT NAME: Aakash Mendoza : 1990 MR: [id number] V: [id number] EXAM DATE: ORDERING PHYSICIAN: LIN KRISHNAN TECHNOLOGIST: Location: Patient: Aakash Mendoza : 1990 Visit/Account:[id number] Date of Sevice: 10/19/2017 CT OF THE BRAIN WITHOUT CONTRAST HISTORY: Trauma PROCEDURE: 3.0 mm contiguous axial sections were performed through the brain. Sagittal and coronal r eformats were submitted. COMPARISON: CT brain of August 09, 2017. FINDINGS: BRAIN: Brain and intracranial structures: There is no mass lesion, hemorrhage or acute infarct. Orbits (included portions): Normal. Scalp: Normal. Skull: Normal. Paranasal sinuses and mastoid air cells (included portions): Normal. IMPRESSION: No evidence of acute intracranial abnormality One of the following dose optimization techniques was utilized in the performance of this exam: Autom ated exposure control; adjustment of the mA and/or kV according to the patient's size; or use of an i terative reconstruction technique. Specific details can be referenced in the facility's radiology C T exam operational policy. Report Dictated By: Maximiliano Holder MD at 10/19/2017 12:19 PM Report E-Signed By: Maximiliano Holder MD at 10/19/2017 12:26 PM WSN:[id number]
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
== END 2017-10-19 12:45 | disposition home or self-care (01) ==
LOC: ER 11:01
DX: S20.212A Contusion of left front wall of thorax, initial encounter (principal); M25.512 Pain in left shoulder; Z79.01 Long term (current) use of anticoagulants
CPT/HCPCS: 70450; 71250; 74176; 81001; 83690; 85025; 85610; 85730; 96374; 99284; G0480; J1885; 80320; 82040; 82247; 82310; 82374; 82435; 82565; 82947; 84075; 84132; 84155; 84295; 84450; 84460; 84520